=== PATIENT | male | born 1975 | race Caucasian/White ===

== ENCOUNTER 2016-07-17 14:41 | Emergency (ER) | payer OTHER ==
[~2016-07-17] VITALS: Ht 175.3 cm; Wt 90.2 kg
[~2016-07-17 14:41] MED LIST: CETI10TA84 PO; MULT-506 PO
[2016-07-17 14:44] VITALS: BP 161/106; PULSE 64; TEMP 36.9; O2SAT 98; Ht 175.3 cm; Wt 90.2 kg
[2016-07-17] MEDS ORDERED: LIDO/EPINEPHRINE/SOD BICARB 20 ML VIAL INFIL ONE (15:03)
[2016-07-17] MEDS ORDERED: CHOL400T PO (15:09)
[2016-07-17] MEDS ORDERED: B-CO1CAP17 PO (15:10)
[2016-07-17] MEDS ORDERED: EPP3/2 IM (15:11)
[2016-07-17] MEDS ORDERED: LIDOCAINE/EPINEPHRINE 1% 20 ML VIAL INFIL ONE (15:15)
--- NOTE | 2016-07-17 16:02 | EMERGENCY ROOM VISIT NOTE ---
History Report prepared by Paula: Kitty Orourke Under the Supervision of: Dr. Andrew García M.D. First contact with patient: 14:57 Chief Complaint: LACERATION/CUT (SUT/DERMABOND) Stated Complaint: CUT ON L PALM Nursing Triage Summary: Pt presents with laceration to left hand. Pt states, "I was lifting a furnace into an attic and my partner dropped his end and I tried to catch it. I have gone through a whole roll of paper towels because of the bleeding." Unknown last tetanus. History of Present Illness The patient is a 40 year old male who presents to the Emergency Room with complaints of an episode of a left hand laceration occurring [employer]. The patient was lifting a furnace into the attic. His partner dropped the other end and the patient tried to catch it. He tore the skin off of his left hand. He states that he has gone through an entire roll of paper towels to try and stop the bleeding. The patient rates his pain as a 1/10 in severity. Source of History: patient Onset: [employer] Position: hand (left) Symptom Intensity: 1/10 Quality: other (bleeding) Timing: other (episode) Review of Systems See HPI for pertinent positives & negatives. A total of 6 systems reviewed and were otherwise negative. Past Medical & Surgical Medical Problems: (1) No significant active problems Family History Cancer Hypertension Social History Smoking Status: Former Smoker Smokeless Tobacco Use: Yes Alcohol Use: none Marital Status: Housing Status: lives with family Occupation Status: employed Current/Historical Medications Scheduled Cetirizine (Zyrtec), 10 MG PO DAILY Cholecalciferol (Vitamin D), 1 TAB PO DAILY Epinephrine (Epipen), 0.3 MG IM UD Vitamin B Cmplx/Vitc/Folic Ac (Nephrocaps), 1 CAP PO DAILY Allergies Coded Allergies: BEE STING (Verified Allergy, Severe, ANAPHYLAXIS, 07/17/16) Uncoded Allergies: DUST MITES (Allergy, Unknown, UNKNOWN, 07/17/16) Physical Exam Vital Signs Date Time Temp Pulse Resp B/P Pulse Ox O2 Delivery O2 Flow Rate FiO2 07/17/16 14:44 36.9 64 18 161/106 98 Room Air Physical Exam GENERAL: Patient is a healthy-appearing well-nourished HEAD: Normocephalic atraumatic EYES: Ocular movements intact pupils equal and react to light OROPHARYNX mucous membranes are moist no exudates present no erythema or edema present NECK: Supple no nuchal rigidity CHEST: Good equal expansion BACK: No CVA tenderness EXTREMITIES: No pain upon palpation normal muscle strength in all groups no clubbing cyanosis or edema. There is an area of skin on the left palm that is removed approximately 1cm x 2 cm, bleeding capillary present. NEURO: Patient is following commands is answering questions appropriately. Alert and oriented x3 Cranial Nerves 2-12 grossly intact Medical Decision & Procedures ED Course 1457: Past medical records reviewed. The patient was evaluated in room D1. A complete history and physical examination was performed. 1503: Lidocaine/Epinephrine 1505: At this time my resident, Dr. Mcgowan, performed a laceration repair. Please see his procedure note for further details. 1534: I reassessed the patient at this time. He is feeling better and resting comfortably. I discussed the results and treatment plan with the patient. I answered all pertaining questions that he had. He expressed understanding and verbalized agreement. The patient will be discharged home. Medical Decision This is a 40-year-old male who presents emergency department with a wound to the left hand. Resident Physician Supervision Note: I was present with Dr. Mcgowan during the history and exam. I discussed the case with the resident and agree with the findings and plan as documented in the note. Documented By: Andrew García Will refer to wound clinic for proper healing care Impression Primary Impression: Laceration of left hand Scribe Attestation The scribe's documentation has been prepared under my direction and personally reviewed by me in its entirety. I confirm that the note above accurately reflects all work, treatment, procedures, and medical decision making performed by me. Departure Information Dispostion Home / Self-Care Referrals Nain Ford M.D. (PCP) Forms HOME CARE DOCUMENTATION FORM, IMPORTANT VISIT INFORMATION Patient Instructions My [facility] Additional Instructions You came to the ED because your had a lacteration to your left hand after lifting a furnace. We evaluated your left hand and noted that you had a superficial laceration and one spot with bleeding. You also had an area of complete skin loss. We numbed the bleedind area and placed 2 stitches to stop the bleeding. We cleaned and dressed the wound. The area does not look infected so you do not need any antibiotics. In addition, the wound did not appear contaminated so you do not need a tetanus booster. The sutures should fall out themselves. When you go home, please make sure that you do not have discharge or redness surrounding the wound and suture site. If these occur, it may indicate infection whereby you may need to see your primary care physician. We will set you up to have follow-up with wound care clinic to make sure the wound heals properly. It was a pleasure to be involved in your care and we wish you all the best. Problem Qualifiers Primary Impression: Laceration of left hand Encounter type: initial encounter Qualified Codes: S61.412A - Laceration without foreign body of left hand, initial encounter
--- NOTE | 2016-07-17 16:21 | EMERGENCY ROOM VISIT NOTE ---
History First contact with patient: 14:52 Chief Complaint: LACERATION/CUT (SUT/DERMABOND) Stated Complaint: CUT ON L PALM Nursing Triage Summary: Pt presents with laceration to left hand. Pt states, "I was lifting a furnace into an attic and my partner dropped his end and I tried to catch it. I have gone through a whole roll of paper towels because of the bleeding." Unknown last tetanus. History of Present Illness The patient is a 40 year old male who presents to the Emergency Room with complaints of lacteraion to left palm Patient was lifting furnace today. Other person assisting slipped. Furnace caught patient finger and created superficial laceration. However, it did bleed profusely initially is now slowing down. No other injuries noted. No discharge or fevers Patient doing well otherwise, in minimal pain. Past Medical/Surgical History Medical Problems: (1) No significant active problems Family History Cancer Hypertension Social History Smoking Status: Former Smoker Alcohol Use: none Drug Use: none Marital Status: Housing Status: lives with family Current/Historical Medications Scheduled Cetirizine (Zyrtec), 10 MG PO DAILY Cholecalciferol (Vitamin D), 1 TAB PO DAILY Epinephrine (Epipen), 0.3 MG IM UD Vitamin B Cmplx/Vitc/Folic Ac (Nephrocaps), 1 CAP PO DAILY Allergies Coded Allergies: BEE STING (Verified Allergy, Severe, ANAPHYLAXIS, 07/17/16) Uncoded Allergies: DUST MITES (Allergy, Unknown, UNKNOWN, 07/17/16) Physical Exam Vital Signs Date Time Temp Pulse Resp B/P Pulse Ox O2 Delivery O2 Flow Rate FiO2 07/17/16 14:44 36.9 64 18 161/106 98 Room Air Pain Rating (0-10): 0 Physical Exam Constitutional: Vital signs as above were reviewed. Eyes: Pupils equal, round, and reactive to light. Extraocular muscles are intact. No proptosis. No photophobia. ENT: Mucous membranes are moist. Oropharynx is clear. No sinus tenderness. TMs are clear bilaterally. Cardiovascular: Heart with a regular rate and rhythm. Pulses are palpable and symmetric in all 4 extremities. No pedal edema appreciated. Respiratory: Lungs clear to auscultation bilaterally. No wheezes, rales, or rhonchi appreciated. No accessory muscle use. No retractions. No increased work of breathing. GI: Abdomen soft, nontender, nondistended. Normal active bowel sounds. No abdominal hernias appreciated. No rebound. No guarding. : No CVA tenderness appreciated. Musculoskeletal: No midline cervical or vertebral tenderness. No gross deformities. No bony tenderness. No calf swelling or tenderness. Integumentary: Warm, dry, no rashes appreciated. 3 cm superficial laceration without full dermis penetration. Small pinpoint area of bleeding. No visualization or underlying bone or tendon Neurological: Patient awake, alert, and oriented x 3. Cranial nerves two through 12 grossly intact. Sensation to left hand intact; normal motor strength Lymph: No cervical lymphadenopathy appreciated. Medical Decision & Procedures Procedure Procedure: Laceration repair Performed by: Dr. Cecilio Mcgowan MD Supervised by: Dr. Andrew García MD Indications: Superficial laceration with continued bleeding from pinpoint source. Procedure: Procedure was explained including risks and benefits. Risk include but not limited to, bleeding, infection, nerve damage. Patient provided verbal consent. Area was sterilized with alcohol pad. 2 cc of 1% lidocaine with epinephrine was injected around the pinpoint site of bleeding. A 2 x 4-0 Chromic suture knots were placed to achieve hemostasis from the bleeding site. The area was cleaned and dressed. Patient tolerated the procedure without any difficulties. EBL: 2 cc Complications: None ED Course 15:00 - Patient seen by me and Dr. García 15:30 - Suture tray set up 2 sutures placed at bleeding site. Procedure tolerated well. 15:40 - Patient set up for discharge. Medical Decision Patient has small superficial laceration with skin loss at palmar surface of hand, as base of pinky and ring finger. Considered tendon or bony injury but findings on examination suggest absence of these. Wound is not dirty enough to warrant, tetanus boost. No evidence of evolving infection. Patient has been cautioned for signs of evolving infection including fevers, wound erythema and discharge. Bleeding was stopped with interrupted chromic sutures. Wound was dressed. Patient will see wound clinic as outpatient for follow-up. Patient was discharged in stable condition. Impression Primary Impression: Laceration of left hand Departure Information Dispostion Home / Self-Care Condition GOOD Forms HOME CARE DOCUMENTATION FORM, IMPORTANT VISIT INFORMATION Patient Instructions My [facility] Additional Instructions You came to the ED because your had a lacteration to your left hand after lifting a furnace. We evaluated your left hand and noted that you had a superficial laceration and one spot with bleeding. You also had an area of complete skin loss. We numbed the bleedind area and placed 2 stitches to stop the bleeding. We cleaned and dressed the wound. The area does not look infected so you do not need any antibiotics. In addition, the wound did not appear contaminated so you do not need a tetanus booster. The sutures should fall out themselves. When you go home, please make sure that you do not have discharge or redness surrounding the wound and suture site. If these occur, it may indicate infection whereby you may need to see your primary care physician. We will set you up to have follow-up with wound care clinic to make sure the wound heals properly. It was a pleasure to be involved in your care and we wish you all the best.
== END 2016-07-17 15:59 | disposition home or self-care (01) ==
LOC: C.EDB 14:43 → C.EDD 15:59
DX: S61.412A Laceration without foreign body of left hand, initial encounter (principal); W20.8XXA Other cause of strike by thrown, projected or falling object, initial encounter; F17.200 Nicotine dependence, unspecified, uncomplicated; Z82.49 Family history of ischemic heart disease and other diseases of the circulatory system